=== PATIENT | male | born 1990 | race Caucasian/White ===

== ENCOUNTER 2022-11-06 02:10 | Emergency (ER) | payer SELFPAY ==
[~2022-11-06] VITALS: Wt 109.8 kg
[2022-11-06 02:38] LABS: BASO # 0.1 10*3/uL (0.0-0.1); BASO % 0.9 % (0.0-1.0); EOS % 0.1 % (1.0-4.0); HEMATOCRIT 43.5 % (42.0-52.0); LYMPH # 2.1 10*3/uL (1.3-4.4); LYMPH % 31.3 % (27.0-41.0); MEAN CELL VOLUME 93.1 fl (80.0-94.0); MEAN CORPUSCULAR HGB 32.3 pg (27.0-31.0); MEAN CORPUSCULAR HGB CONC 34.7 g/dl (33.0-37.0); MEAN PLATELET VOLUME 9.5 fl (9.6-12.3); MONO # 0.5 10*3/uL (0.1-1.0); MONO % 6.7 % (3.0-9.0); NEUT # 4.1 10*3/uL (2.3-7.9); NEUT % 60.7 % (47.0-73.0); PLATELET COUNT AUTOMATED 230 10*3/uL (130-400); RED BLOOD COUNT 4.67 10*6/uL (4.50-5.90); RED CELL DISTRI WIDTH 12.5 % (0-14.5); WHITE BLOOD COUNT 6.7 10*3/uL (4.8-10.8)
[2022-11-06 02:53] LABS: ALKALINE PHOSPHATASE 61 U/L (46-116); BUN 9 mg/dl (9-23); CHLORIDE 106 mmol/L (98-107); ETHYL ALCOHOL 297.1 mg/dl (<3); POTASSIUM 3.6 mmol/L (3.4-5.1); SGPT/ALT 30 U/L (10-49); TOTAL PROTEIN 7.5 gm/dL (6.0-8.0)
== END 2022-11-06 06:39 | disposition home or self-care (01) ==
LOC: ED 02:10
PROVIDERS: Internal Medicine
DX: G40.909 Epilepsy, unspecified, not intractable, without status epilepticus (principal); F10.129 Alcohol abuse with intoxication, unspecified